=== PATIENT | female | born 1965 | race Caucasian/White ===

== ENCOUNTER 2022-11-26 13:08 | Emergency (ER) | payer OTHER ==
--- NOTE | 2022-11-26 14:29 | ED ---
General Adult HPI - General Source: patient Mode of arrival: ambulatory Limitations: no limitations <Valarie Sanders - Last Filed: 11/26/22 15:20> <Geovani Sandoval - Last Filed: 11/26/22 16:01> - General Chief complaint: Neuro Symptoms/Deficit Stated complaint: Pain in Lt arm Time Seen by Provider: 11/26/22 13:15 - History of Present Illness Initial comments: 57-year-old female past medical history of hyperlipidemia who presents to the emergency department reporting to left arm numbness, tingling and weakness. She is left-hand dominant. States that one hour prior to hospital arrival she began having tingling with weakness in the left hand. Denies any involvement of her leg. No facial droop or slurred speech. Denies headaches. No fevers. No recent head trauma. No history of stroke. Symptoms have slightly improved since onset. Does not take any blood thinners. No other alleviating, precipit ating or modifying factors (Valarie Sanders) - Related Data Allergies Allergy/AdvReac Type Severity Reaction Status Date / Time No Known Allergies Allergy Verified 11/26/22 13:14 Review of Systems ROS Other: All systems not noted in ROS Statement are negative. <Valarie Sanders - Last Filed: 11/26/22 15:20> ROS Other: All systems not noted in ROS Statement are negative. <Geovani Sandoval - Last Filed: 11/26/22 16:01> ROS Statement: Those systems with pertinent positive or pertinent negative responses have been documented in the HPI. Past Medical History Past Medical History: Hyperlipidemia Additional Past Medical History / Comment(s): Migraine History of Any Multi-Drug Resistant Organisms: None Reported Past Surgical History: No Surgical Hx Reported Past Psychological History: No Psychological Hx Reported Smoking Status: Never smoker Past Alcohol Use History: Occasional Past Drug Use History: None Reported <Valarie Sanders - Last Filed: 11/26/22 15:20> General Exam Limitations: no limitations General appearance: alert, in no apparent distress Head exam: Present: atraumatic, normocephalic, normal inspection Eye exam: Present: normal appearance, PERRL, EOMI. Absent: scleral icterus, conjunctival injection, periorbital swelling ENT exam: Present: normal exam, mucous membranes moist Neck exam: Present: normal inspection. Absent: tenderness, meningismus, lymphadenopathy Respiratory exam: Present: normal lung sounds bilaterally. Absent: respiratory distress, wheezes, rales, rhonchi, stridor Cardiovascular Exam: Present: regular rate, normal rhythm, normal heart sounds. Absent: systolic murmur, diastolic murmur, rubs, gallop, clicks GI/Abdominal exam: Present: soft, normal bowel sounds. Absent: distended, tenderness, guarding, rebound, rigid Extremities exam: Present: normal inspection, full ROM, normal capillary refill. Absent: tenderness, pedal edema, joint swelling, calf tenderness Back exam: Present: normal inspection Neurological exam: Present: alert, oriented X3, CN II-XII intact Psychiatric exam: Present: normal affect, normal mood Skin exam: Present: warm, dry, intact, normal color. Absent: rash <Valarie Sanders - Last Filed: 11/26/22 15:20> Course Vital Signs 11/26/22 11/26/22 11/26/22 13:10 14:18 14:20 Temperature 97.7 F Pulse Rate 70 63 Respiratory 18 18 19 Rate Blood Pressure 165/92 139/66 O2 Sat by Pulse 98 99 Oximetry 11/26/22 11/26/22 11/26/22 14:30 14:40 15:10 Temperature Pulse Rate 64 59 L 69 Respiratory 20 21 19 Rate Blood Pressure 163/85 136/65 O2 Sat by Pulse 99 98 99 Oximetry 11/26/22 11/26/22 15:20 15:30 Temperature Pulse Rate 63 64 Respiratory 18 17 Rate Blood Pressure O2 Sat by Pulse 96 98 Oximetry Medical Decision Making - Lab Data Result diagrams: 11/26/22 14:07 11/26/22 14:07 <Valarie Sanders - Last Filed: 11/26/22 15:20> - Lab Data Result diagrams: 11/26/22 14:07 11/26/22 14:07 <Geovani Sandoval - Last Filed: 11/26/22 16:01> - Medical Decision Making Was pt. sent in by a medical professional or institution (, PA, ONLINE BANKING SPECIALIST, urgent care, hospital, or fci...) When possible be specific @ -No Did you speak to anyone other than the patient for history (EMS, parent, family, police, friend...)? What history was obtained from this source @ -No Did you review nursing and triage notes (agree or disagree)? Why? @ -I reviewed and agree with nursing and triage notes Were old charts reviewed (outside hosp., previous admission, EMS record, old EKG, old radiological studies, urgent care reports/EKG's, fci records)? Report findings @ -No old charts were reviewed Differential Diagnosis (chest pain, altered mental status, abdominal pain women, abdominal pain men, vaginal bleeding, weakness, fever, dyspnea, syncope, headache, dizziness, GI bleed, back pain, seizure, CVA, palpatations, mental health, musculoskeletal)? @ -Differential CVA Ischemic stroke, hemorrhagic stroke, brain tumor, atypical migraine, Wernicke's encephalopathy, seizure, multiple sclerosis, meningitis, encephalitis, hypoglycemia, Guillain-Nunez, electrolytes disturbance, myasthenia gravis.... This is not meant to be an all-inclusive list EKG interpreted by me (3pts min.). @ -Yes and demonstrates sinus rhythm with a rate of 62. OR interval 186. QRS 115. QTC of 391. No acute ST segment elevations or depression X-rays interpreted by me (1pt min.). @ -Yes and demonstrates no acute process CT interpreted by me (1pt min.). @ -Yes and demonstrates U/S interpreted by me (1pt. min.). @ -None done What testing was considered but not performed or refused? (CT, X-rays, U/S, labs)? Why? @ -None What meds were considered but not given or refused? Why? @ -None Did you discuss the management of the patient with other professionals ( professionals i.e. , PA, ONLINE BANKING SPECIALIST, lab, RT, psych nurse, social work coordinator, bait painter, teacher, corporate compliance officer, supportive employment case manager)? Give summary @ -No Was smoking cessation discussed for >3mins.? @ -No Was critical care preformed (if so, how long)? @ -No Were there social determinants of health that impacted care today? How? (Homelessness, low income, unemployed, alcoholism, drug addiction, transpo rtation, low edu. Level, literacy, decrease access to med. care, [facility], rehab)? @ -No Was there de-escalation of care discussed even if they declined (Discuss DNR or withdrawal of care, Hospice)? DNR status @ -No What co-morbidities impacted this encounter? (DM, HTN, Smoking, COPD, CAD, Cancer, CVA, ARF, Chemo, Hep., AIDS, mental health diagnosis, sleep apnea, morbid obesity)? @ -Hyperlipidemia Was patient admitted / discharged? Hospital course, mention meds given and route, prescriptions, significant lab abnormalities, going to OR and other pertinent info. @ -Arrival patient was placed into room 9. Thorough history and physical exam was performed. NIH is assessed and the patient has a score of 0. IV is established. Laboratory studies were conducted. Patient does go for CT imaging. CT pending at this time case will be signed out to Dr. Sandoval Undiagnosed new problem with uncertain prognosis? @ -Yes Drug Therapy requiring intensive monitoring for toxicity (Heparin, Nitro, Insulin, Cardizem)? @ -No Were any procedures done? @ -No Diagnosis/symptom? @ -Acute right upper extremity paresthesia Acute, or Chronic, or Acute on Chronic? @ -Acute Uncomplicated (without systemic symptoms) or Complicated (systemic symptoms)? @ -Complicated Side effects of treatment? @ -No Exacerbation, Progression, or Severe Exacerbation? @ -No Poses a threat to life or bodily function? How? (Chest pain, [place], [place], pneumonia, PE, COPD, DKA, ARF, appy, cholecystitis, CVA, Diverticulitis, Homicidal, Suicidal, threat to staff... and all critical care pts) @ -No (Valarei Sanders) I did reevaluate this patient and had a long discussion regarding her symptoms. She has an NIH of 0. She has no strength deficit, no numbness, no ataxia. Vital signs are stable. She is in sinus rhythm. She has normal laboratory testing. She has a negative noncontrast CT and a negative CT angiography of the brain. She is feeling better at the time my evaluation. I did offer admission for neurology consultation and MRI per patient declines she prefers outpatient follow-up. She's given strict return parameters. Patient and family are agreeable. (Geovani Sandoval) - Lab Data Lab Results 11/26/22 11/26/22 11/26/22 Range/Units 14:07 14:07 14:07 WBC 6.9 (3.8-10.6) k/uL RBC 4.69 (3.80-5.40) m/uL Hgb 14.3 (11.4-16.0) gm/dL Hct 44.0 (34.0-46.0) % MCV 93.7 (80.0-100.0) fL MCH 30.5 (25.0-35.0) pg MCHC 32.5 (31.0-37.0) g/dL RDW 13.3 (11.5-15.5) % Plt Count 232 (150-450) k/uL MPV 8.1 Neutrophils % 61 % Lymphocytes % 27 % Monocytes % 7 % Eosinophils % 3 % Basophils % 1 % Neutrophils # 4.2 (1.3-7.7) k/uL Lymphocytes # 1.9 (1.0-4.8) k/uL Monocytes # 0.5 (0-1.0) k/uL Eosinophils # 0.2 (0-0.7) k/uL Basophils # 0.0 (0-0.2) k/uL PT 10.0 (9.0-12.0) sec INR 0.9 (<1.2) APTT 22.9 (22.0-30.0) sec Sodium 141 (137-145) mmol/L Potassium 3.6 (3.5-5.1) mmol/L Chloride 105 (98-107) mmol/L Carbon Dioxide 26 (22-30) mmol/L Anion Gap 10 mmol/L BUN 16 (7-17) mg/dL Creatinine 0.62 (0.52-1.04) mg/dL Est GFR (CKD-EPI)AfAm >90 (>60 ml/min/1.73 sqM) Est GFR (CKD-EPI)NonAf >90 (>60 ml/min/1.73 sqM) Glucose 91 (74-99) mg/dL Calcium 9.8 (8.4-10.2) mg/dL Total Bilirubin 0.7 (0.2-1.3) mg/dL AST 31 (14-36) U/L ALT 24 (4-34) U/L Alkaline Phosphatase 66 (38-126) U/L Creatine Kinase 106 (30-135) U/L Troponin I (0.000-0.034) ng/mL Total Protein 7.4 (6.3-8.2) g/dL Albumin 4.7 (3.5-5.0) g/dL 11/26/22 Range/Units 14:07 WBC (3.8-10.6) k/uL RBC (3.80-5.40) m/uL Hgb (11.4-16.0) gm/dL Hct (34.0-46.0) % MCV (80.0-100.0) fL MCH (25.0-35.0) pg MCHC (31.0-37.0) g/dL RDW (11.5-15.5) % Plt Count (150-450) k/uL MPV Neutrophils % % Lymphocytes % % Monocytes % % Eosinophils % % Basophils % % Neutrophils # (1.3-7.7) k/uL Lymphocytes # (1.0-4.8) k/uL Monocytes # (0-1.0) k/uL Eosinophils # (0-0.7) k/uL Basophils # (0-0.2) k/uL PT (9.0-12.0) sec INR (<1.2) APTT (22.0-30.0) sec Sodium (137-145) mmol/L Potassium (3.5-5.1) mmol/L Chloride (98-107) mmol/L Carbon Dioxide (22-30) mmol/L Anion Gap mmol/L BUN (7-17) mg/dL Creatinine (0.52-1.04) mg/dL Est GFR (CKD-EPI)AfAm (>60 ml/min/1.73 sqM) Est GFR (CKD-EPI)NonAf (>60 ml/min/1.73 sqM) Glucose (74-99) mg/dL Calcium (8.4-10.2) mg/dL Total Bilirubin (0.2-1.3) mg/dL AST (14-36) U/L ALT (4-34) U/L Alkaline Phosphatase (38-126) U/L Creatine Kinase (30-135) U/L Troponin I <0.012 (0.000-0.034) ng/mL Total Protein (6.3-8.2) g/dL Albumin (3.5-5.0) g/dL Disposition <Valarie Sanders - Last Filed: 11/26/22 15:20> Is patient prescribed a controlled substance at d/c from ED?: No Time of Disposition: 16:01 <Geovani Sandoval - Last Filed: 11/26/22 16:01> Clinical Impression: Paresthesia of arm Disposition: HOME SELF-CARE Condition: Good Instructions (If sedation given, give patient instructions): Paresthesia (ED) Referrals: Nonstaff,Physician [Primary Care Provider] - 1-2 days
[2022-11-26 14:34] LABS: Basophils % (A) 1 %; Eosinophils # (A) 0.2 k/uL (0-0.7); Eosinophils % (A) 3 %; HGB 14.3 gm/dL (11.4-16.0); Lymphocytes # (A) 1.9 k/uL (1.0-4.8); Lymphocytes % (A) 27 %; MCH 30.5 pg (25.0-35.0); MCHC 32.5 g/dL (31.0-37.0); MCV 93.7 fL (80.0-100.0); Mean Platelet Volume 8.1; Monocytes # (A) 0.5 k/uL (0-1.0); Monocytes % (A) 7 %; Neutrophils # (A) 4.2 k/uL (1.3-7.7); Neutrophils % (A) 61 %; Platelet Count 232 k/uL (150-450); RBC 4.69 m/uL (3.80-5.40); RDW 13.3 % (11.5-15.5); WBC 6.9 k/uL (3.8-10.6)
[2022-11-26 14:35] LABS: Albumin 4.7 g/dL (3.5-5.0); Glucose 91 mg/dL (74-99); Total Protein 7.4 g/dL (6.3-8.2)
[2022-11-26 14:36] LABS: ALT 24 U/L (4-34); AST 31 U/L (14-36); African American GFR (CKD) >90 (>60 ml/min/1.73 sqM); Alkaline Phosphatase 66 U/L (38-126); Anion Gap 10 mmol/L; Blood Urea Nitrogen 16 mg/dL (7-17); Calcium 9.8 mg/dL (8.4-10.2); Carbon Dioxide 26 mmol/L (22-30); Chloride 105 mmol/L (98-107); Creatine Kinase 106 U/L (30-135); INR 0.9 (<1.2); Non-African American GFR(CKD) >90 (>60 ml/min/1.73 sqM); Partial Thromboplastin Time 22.9 sec (22.0-30.0); Potassium 3.6 mmol/L (3.5-5.1); Sodium 141 mmol/L (137-145); Total Bilirubin 0.7 mg/dL (0.2-1.3)
--- NOTE | 2022-11-26 15:15 | XR ---
EXAMINATION TYPE: XR chest 2V DATE OF EXAM: 11/26/2022 COMPARISON: NONE HISTORY: Altered mental status TECHNIQUE: Frontal and lateral views of the chest are obtained. FINDINGS: There is no focal air space opacity, pleural effusion, or pneumothorax seen. The cardiac silhouette size is within normal limits. The osseous structures are intact. IMPRESSION: No acute cardiopulmonary process.
--- NOTE | 2022-11-26 15:27 | CT ---
EXAMINATION TYPE: CT brain wo con DATE OF EXAM: 11/26/2022 COMPARISON: None HISTORY: left arm numbness CT DLP: 1697.7 mGycm Automated exposure control for dose reduction was used. FINDINGS: The ventricles, basal cisterns and sulci over convexities are within normal limits and there is no ma ss effect or shift of midline structures. No abnormal density is seen throughout the brain parenchyma and there is no acute intraparenchymal ex tra-axial hemorrhage. The posterior fossa is grossly normal. The intraorbital contents appear normal and symmetric. Visualized paranasal sinuses and mastoid air c ells are well aerated IMPRESSION: NO SIGNIFICANT ABNORMALITY SEEN. NO ACUTE BLEED OR MASS EFFECT
--- NOTE | 2022-11-26 15:31 | CT ---
EXAMINATION TYPE: CT angio head neck DATE OF EXAM: 11/26/2022 HISTORY: left arm numbness COMPARISON: None CT DLP: 1697.7 mGycm. Automated Exposure Control for Dose Reduction was Utilized. TECHNIQUE: CTA scan of the head and neck is performed with IV Contrast, patient injected with 65 mL of Isovue 370, axial images are obtained, coronal and sagittal reformatted images are reviewed. 3D re constructed images are created on an independent workstation and reviewed. FINDINGS: The brachiocephalic origins are widely patent and there is no stenosis. There are no stenoses of the common or internal carotid arteries within the neck. There are no stenoses or segmental occlusions within the intracerebral arterial circulation. There ar e no sizable aneurysms or vascular malformations. NASCET criteria was used in interpretation of this exam? IMPRESSION: No significant abnormality seen.
[2022-11-26 15:37] VITALS: BP 136/65; PULSE 64
[2022-11-26 16:08] VITALS: RESP 19; TEMP 97.8
== END 2022-11-26 16:08 | disposition home or self-care (01) ==
LOC: EC 13:08
DX: R20.2 Paresthesia of skin (principal)
CPT/HCPCS: 36415; 93005; 80053; 82550; 84484; 85025; 85610; 85730; 71046; 70496; 70450; 70498; 99284; Q9967